=== PATIENT | male | born 1990 | race Caucasian/White ===

== ENCOUNTER 2022-05-22 17:21 | Inpatient (IN) | payer OTHER ==
[2022-05-22 17:56] VITALS: BMI 26.8
[2022-05-22] MEDS ORDERED: guaiFENesin 200 MG/10 ML 10 ML UNIT-DOSE CUPS PO PRN (19:38)
[2022-05-22] MEDS ORDERED: IBUPROFEN 600 MG TABLET (FP) PO PRN (19:38)
[2022-05-22] MEDS ORDERED: hydrOXYzine PAMOATE 25 MG CAPSULE (FP) PO PRN (19:38)
[2022-05-22] MEDS ORDERED: ONDANSETRON *ODT* 4 MG TABLET SL PRN (19:38)
[2022-05-22] MEDS ORDERED: POLYETHYLENE GLYCOL (HEALTHYLAX) 3350 17 GM PACKET PO PRN (19:38)
[2022-05-22] MEDS ORDERED: DICYCLOMINE HCL 10 MG CAPSULE PO PRN (19:38)
[2022-05-22] MEDS ORDERED: BENZOCAINE/MENTHOL (CHLORASEPTIC ) LOZENGE MM PRN (19:38)
[2022-05-22] MEDS ORDERED: MAGNESIUM HYDROX 2400MG/30ML ORAL SUSPENSION 30 ML CUP PO PRN (19:38)
[2022-05-22] MEDS ORDERED: METHOCARBAMOL 500 MG TABLET PO PRN (19:38)
[2022-05-22] MEDS ORDERED: IBUPROFEN 400 MG TABLET (FP) PO PRN (19:38)
[2022-05-22] MEDS ORDERED: P-EPHED 60MG/TRIPROLIDI 2.5MG TABLET PO PRN (19:38)
[2022-05-22] MEDS ORDERED: MAG HYDROX/AL HYDROX/SIMETH 30 ML UNIT-DOSE CUP PO PRN (19:38)
[2022-05-22] MEDS ORDERED: ACETAMINOPHEN 325 MG TABLET (FP) PO PRN ×2 (19:38)
[2022-05-22] MEDS ORDERED: BISMUTH SUBSALICYLATE 524 MG/30 ML PO PRN (19:38)
[2022-05-23] MEDS: THIAMINE HCL 100 MG TABLET (FP) PO SCH ×2 (00:03→22:15)
[2022-05-23] MEDS: MELATONIN 5 MG TABLETS PO PRN ×2 (00:04→22:16)
[2022-05-23] MEDS: diazePAM 5 MG TABLET PO PRN (00:04)
[2022-05-23] MEDS: diazePAM 5 MG TABLET PO SCH ×5 (00:07→22:15)
[2022-05-23] MEDS: PRENATAL VITAMINS W/ FOLIC ACID TABLET (FP) PO SCH (10:51)
[2022-05-23] MEDS: HYDROCORTISONE 1% TOPICAL CREAM 30 GM TUBE TP SCH (15:14)
[2022-05-23] MEDS: LOPERAMIDE HCL 2 MG CAPSULE PO PRN (16:51)
[2022-05-23] MEDS: FAMOTIDINE 20 MG TABLET PO SCH (22:15)
[2022-05-24] MEDS: diazePAM 5 MG TABLET PO SCH ×3 (05:50→22:30)
[2022-05-24] MEDS: FAMOTIDINE 20 MG TABLET PO SCH ×2 (10:48→22:30)
[2022-05-24] MEDS: PRENATAL VITAMINS W/ FOLIC ACID TABLET (FP) PO SCH (10:48)
[2022-05-24] MEDS: HYDROCORTISONE 1% TOPICAL CREAM 30 GM TUBE TP SCH (10:48)
[2022-05-24] MEDS ORDERED: diphenhydrAMINE HCL 50 MG CAPSULE PO PRN (13:38)
[2022-05-24] MEDS: LOPERAMIDE HCL 2 MG CAPSULE PO PRN (13:41)
[2022-05-24] MEDS: THIAMINE HCL 100 MG TABLET (FP) PO SCH (22:30)
[2022-05-24] MEDS: MELATONIN 5 MG TABLETS PO PRN (22:32)
[2022-05-25] MEDS: diazePAM 5 MG TABLET PO SCH ×2 (05:22→17:16)
[2022-05-25] MEDS: PRENATAL VITAMINS W/ FOLIC ACID TABLET (FP) PO SCH (10:17)
[2022-05-25] MEDS: FAMOTIDINE 20 MG TABLET PO SCH ×2 (10:17→22:08)
[2022-05-25] MEDS: HYDROCORTISONE 1% TOPICAL CREAM 30 GM TUBE TP SCH (10:17)
[2022-05-25] MEDS: diazePAM 5 MG TABLET PO PRN (10:18)
[2022-05-25] MEDS: LOPERAMIDE HCL 2 MG CAPSULE PO PRN (17:35)
[2022-05-25 17:39] VITALS: RESP 17
[2022-05-25] MEDS: THIAMINE HCL 100 MG TABLET (FP) PO SCH (22:08)
[2022-05-26] MEDS ORDERED: diazePAM 5 MG TABLET PO ONE (06:00)
[2022-05-26 09:18] VITALS: BP 115/69; PULSE 83; TEMP 97
[2022-05-26] MEDS: FAMOTIDINE 20 MG TABLET PO SCH (09:49)
[2022-05-26] MEDS: PRENATAL VITAMINS W/ FOLIC ACID TABLET (FP) PO SCH (09:49)
[2022-05-26] MEDS: HYDROCORTISONE 1% TOPICAL CREAM 30 GM TUBE TP SCH (09:50)
== END 2022-05-26 11:40 | disposition other institution (70) | DRG 775 ==
LOC: YASAS 17:21 → Y6N 22:27
PROVIDERS: ADMIT Allergy & Immunology; ATTEND Surgery
PROC: HZ2ZZZZ Detoxification Services for Substance Abuse Treatment (ICD-10-PCS; principal; 2022-05-22)
DX: F10.230 Alcohol dependence with withdrawal, uncomplicated (principal); K21.9 Gastro-esophageal reflux disease without esophagitis; Z59.00 Homelessness unspecified; Z91.013 Allergy to seafood
CPT/HCPCS: 36415; 86780; 87811; C9803-CS; U0003; U0005

== ENCOUNTER 2022-06-21 17:30 | Inpatient (IN) | payer OTHER ==
[2022-06-21 18:33] VITALS: BMI 26.6
[2022-06-21] MEDS ORDERED: ONDANSETRON *ODT* 4 MG TABLET SL PRN (20:07)
[2022-06-21] MEDS ORDERED: P-EPHED 60MG/TRIPROLIDI 2.5MG TABLET PO PRN (20:07)
[2022-06-21] MEDS ORDERED: MAG HYDROX/AL HYDROX/SIMETH 30 ML UNIT-DOSE CUP PO PRN (20:07)
[2022-06-21] MEDS ORDERED: DICYCLOMINE HCL 10 MG CAPSULE PO PRN (20:07)
[2022-06-21] MEDS ORDERED: BENZONATATE 200 MG CAPSULE PO PRN (20:07)
[2022-06-21] MEDS ORDERED: IBUPROFEN 400 MG TABLET (FP) PO PRN (20:07)
[2022-06-21] MEDS ORDERED: POLYETHYLENE GLYCOL (HEALTHYLAX) 3350 17 GM PACKET PO PRN (20:07)
[2022-06-21] MEDS ORDERED: BENZOCAINE/MENTHOL (CHLORASEPTIC ) LOZENGE MM PRN (20:07)
[2022-06-21] MEDS ORDERED: guaiFENesin 600 MG TABLET.ER (FP) PO PRN (20:07)
[2022-06-21] MEDS ORDERED: MAGNESIUM HYDROX 2400MG/30ML ORAL SUSPENSION 30 ML CUP PO PRN (20:07)
[2022-06-21] MEDS ORDERED: LOPERAMIDE HCL 2 MG CAPSULE PO PRN (20:07)
[2022-06-21] MEDS ORDERED: chlordiazePOXIDE HCL 25 MG CAPSULE PO PRN (20:10)
[2022-06-22] MEDS: THIAMINE HCL 100 MG TABLET (FP) PO SCH ×2 (00:44→22:18)
[2022-06-22] MEDS: chlordiazePOXIDE HCL 25 MG CAPSULE PO SCH ×5 (00:44→22:19)
[2022-06-22] MEDS: MELATONIN 5 MG TABLETS PO PRN ×2 (00:51→22:18)
[2022-06-22] MEDS: PRENATAL VITAMINS W/ FOLIC ACID TABLET (FP) PO SCH (10:47)
[2022-06-22] MEDS: FAMOTIDINE 20 MG TABLET PO SCH ×2 (10:48→22:19)
[2022-06-22 11:44] LABS: CALCIUM 8.9 mg/dL (8.5-10.1); HEMATOCRIT 38.3 % (35.4-49); HEMOGLOBIN 12.9 GM/dL (11.7-16.9); MCH 30.2 pg (25.7-33.7); MCHC 33.6 g/dl (32.0-35.9); MEAN CELL VOLUME 89.7 fl (80-96); MEAN PLT VOLUME 10.2 fl (7.5-11.1); PLATELET COUNT 155 10^3/uL (134-434); RBC 4.27 M/mm3 (4.00-5.60); RDW 13.3 % (11.9-15.9)
[2022-06-22 11:45] LABS: ALBUMIN 3.5 g/dl (3.4-5.0); BLOOD UREA NITROGEN 7.5 mg/dL (7-18)
[2022-06-22 11:48] LABS: CREATININE 0.7 mg/dL (0.55-1.3)
[2022-06-22 11:49] LABS: BILIRUBIN,TOTAL 0.3 mg/dL (0.2-1); TOT PROT 7.2 g/dl (6.4-8.2)
[2022-06-22] MEDS: ACETAMINOPHEN 325 MG TABLET (FP) PO PRN (18:07)
[2022-06-23] MEDS: chlordiazePOXIDE HCL 25 MG CAPSULE PO SCH ×4 (05:51→22:11)
[2022-06-23] MEDS: PRENATAL VITAMINS W/ FOLIC ACID TABLET (FP) PO SCH (10:27)
[2022-06-23] MEDS: FAMOTIDINE 20 MG TABLET PO SCH ×2 (10:27→22:11)
[2022-06-23] MEDS: ACETAMINOPHEN 325 MG TABLET (FP) PO PRN (11:03)
[2022-06-23] MEDS: THIAMINE HCL 100 MG TABLET (FP) PO SCH (22:11)
[2022-06-23] MEDS: MELATONIN 5 MG TABLETS PO PRN (22:12)
[2022-06-24] MEDS ORDERED: chlordiazePOXIDE HCL 10 MG CAPSULE PO PRN
[2022-06-24] MEDS: chlordiazePOXIDE HCL 10 MG CAPSULE PO SCH ×4 (05:43→22:05)
[2022-06-24] MEDS: FAMOTIDINE 20 MG TABLET PO SCH ×2 (10:13→22:05)
[2022-06-24] MEDS: PRENATAL VITAMINS W/ FOLIC ACID TABLET (FP) PO SCH (10:13)
[2022-06-24] MEDS: BISMUTH SUBSALICYLATE 524 MG/30 ML PO PRN (21:28)
[2022-06-24] MEDS: THIAMINE HCL 100 MG TABLET (FP) PO SCH (22:05)
[2022-06-24] MEDS: MELATONIN 5 MG TABLETS PO PRN (22:05)
[2022-06-25] MEDS: chlordiazePOXIDE HCL 10 MG CAPSULE PO SCH ×2 (05:46→17:51)
[2022-06-25] MEDS: BISMUTH SUBSALICYLATE 524 MG/30 ML PO PRN ×4 (05:47→22:31)
[2022-06-25] MEDS: FAMOTIDINE 20 MG TABLET PO SCH ×2 (10:09→22:27)
[2022-06-25] MEDS: PRENATAL VITAMINS W/ FOLIC ACID TABLET (FP) PO SCH (10:09)
[2022-06-25] MEDS: IBUPROFEN 600 MG TABLET (FP) PO PRN (10:11)
[2022-06-25] MEDS: ACETAMINOPHEN 325 MG TABLET (FP) PO PRN (17:50)
[2022-06-25] MEDS: MELATONIN 5 MG TABLETS PO PRN (22:27)
[2022-06-25] MEDS: THIAMINE HCL 100 MG TABLET (FP) PO SCH (22:27)
[2022-06-26] MEDS ORDERED: chlordiazePOXIDE HCL 10 MG CAPSULE PO ONE (05:00)
[2022-06-26 09:48] VITALS: BP 104/70; PULSE 73; RESP 18; TEMP 97.3
[2022-06-26] MEDS: FAMOTIDINE 20 MG TABLET PO SCH (10:13)
[2022-06-26] MEDS: IBUPROFEN 600 MG TABLET (FP) PO PRN (10:13)
[2022-06-26] MEDS: PRENATAL VITAMINS W/ FOLIC ACID TABLET (FP) PO SCH (10:13)
[2022-06-26] MEDS: BISMUTH SUBSALICYLATE 524 MG/30 ML PO PRN (12:01)
== END 2022-06-26 12:55 | disposition home or self-care (01) | DRG 775 ==
LOC: YASAS 17:30 → Y3N 23:47
PROVIDERS: ADMIT Allergy & Immunology; ATTEND Allergy & Immunology
PROC: HZ2ZZZZ Detoxification Services for Substance Abuse Treatment (ICD-10-PCS; principal; 2022-06-21)
DX: F10.230 Alcohol dependence with withdrawal, uncomplicated (principal)
CPT/HCPCS: 36415; 80053; 85027; 86780; C9803-CS; U0003; U0005

== ENCOUNTER 2022-09-29 14:50 | Inpatient (IN) | payer OTHER ==
[2022-09-29 16:41] VITALS: BMI 26.9
[2022-09-29] MEDS ORDERED: NALOXONE HCL 0.4 MG/ML VIAL IM PRN (19:48)
[2022-09-29] MEDS ORDERED: MAG HYDROX/AL HYDROX/SIMETH 30 ML UNIT-DOSE CUP PO PRN (19:48)
[2022-09-29] MEDS ORDERED: guaiFENesin 600 MG TABLET.ER (FP) PO PRN (19:48)
[2022-09-29] MEDS ORDERED: BENZOCAINE/MENTHOL (CHLORASEPTIC ) LOZENGE MM PRN (19:48)
[2022-09-29] MEDS ORDERED: LORazepam 1 MG TABLET PO PRN (19:48)
[2022-09-29] MEDS ORDERED: NALOXONE HCL (KLOXXADO) 8 MG SPRAY NS PRN (19:48)
[2022-09-29] MEDS ORDERED: BISMUTH SUBSALICYLATE 524 MG/30 ML PO PRN (19:48)
[2022-09-29] MEDS ORDERED: DICYCLOMINE HCL 10 MG CAPSULE PO PRN (19:48)
[2022-09-29] MEDS ORDERED: LOPERAMIDE HCL 2 MG CAPSULE PO PRN (19:48)
[2022-09-29] MEDS ORDERED: IBUPROFEN 400 MG TABLET (FP) PO PRN (19:48)
[2022-09-29] MEDS ORDERED: POLYETHYLENE GLYCOL (HEALTHYLAX) 3350 17 GM PACKET PO PRN (19:48)
[2022-09-29] MEDS ORDERED: BENZONATATE 200 MG CAPSULE PO PRN (19:48)
[2022-09-29] MEDS ORDERED: ONDANSETRON *ODT* 4 MG TABLET SL PRN (19:48)
[2022-09-29] MEDS ORDERED: MAGNESIUM HYDROX 2400MG/30ML ORAL SUSPENSION 30 ML CUP PO PRN (19:48)
[2022-09-29] MEDS: MELATONIN 5 MG TABLETS PO SCH (22:21)
[2022-09-29] MEDS: LORazepam 2 MG TABLET PO SCH (22:22)
[2022-09-29] MEDS: THIAMINE HCL 100 MG TABLET (FP) PO SCH (22:22)
[2022-09-30] MEDS: LORazepam 2 MG TABLET PO SCH ×4 (05:12→22:09)
[2022-09-30] MEDS: FAMOTIDINE 20 MG TABLET PO SCH ×2 (10:27→22:07)
[2022-09-30] MEDS: PRENATAL VITAMINS W/ FOLIC ACID TABLET (FP) PO SCH (10:27)
[2022-09-30 13:10] LABS: POTASSIUM 3.8 mmol/L (3.5-5.1)
[2022-09-30 13:12] LABS: HEMATOCRIT 40.1 % (35.4-49); HEMOGLOBIN 13.4 GM/dL (11.7-16.9); MCH 30.1 pg (25.7-33.7); MCHC 33.5 g/dl (32.0-35.9); MEAN CELL VOLUME 89.8 fl (80-96); MEAN PLT VOLUME 9.8 fl (7.5-11.1); PLATELET COUNT 189 10^3/uL (134-434); RBC 4.47 M/mm3 (4.00-5.60); RDW 14.4 % (11.9-15.9); WHITE BLOOD COUNT 5.3 K/mm3 (4.0-10.0)
[2022-09-30] MEDS: CLINDAMYCIN PHOSPHATE 1% TOPICAL SOLUTION 30 ML BOTTLE TP SCH (13:12)
[2022-09-30 13:14] LABS: ALBUMIN 3.6 g/dl (3.4-5.0); CALCIUM 9.4 mg/dL (8.5-10.1)
[2022-09-30 13:15] LABS: BLOOD UREA NITROGEN 8.6 mg/dL (7-18)
[2022-09-30 13:17] LABS: CREATININE 0.8 mg/dL (0.55-1.3)
[2022-09-30 13:19] LABS: BILIRUBIN,TOTAL 0.4 mg/dL (0.2-1); TOT PROT 7.4 g/dl (6.4-8.2)
[2022-09-30] MEDS: MELATONIN 5 MG TABLETS PO SCH (22:06)
[2022-09-30] MEDS: THIAMINE HCL 100 MG TABLET (FP) PO SCH (22:06)
[2022-09-30] MEDS: diphenhydrAMINE HCL 25 MG CAPSULE (FP) PO PRN (22:08)
[2022-09-30] MEDS: ACETAMINOPHEN 325 MG TABLET (FP) PO PRN (22:12)
[2022-10-01] MEDS: LORazepam 1 MG TABLET PO SCH ×4 (05:51→22:15)
[2022-10-01] MEDS: FAMOTIDINE 20 MG TABLET PO SCH ×2 (09:59→22:15)
[2022-10-01] MEDS: PRENATAL VITAMINS W/ FOLIC ACID TABLET (FP) PO SCH (09:59)
[2022-10-01] MEDS: IBUPROFEN 600 MG TABLET (FP) PO PRN ×2 (10:00→18:57)
[2022-10-01] MEDS: CLINDAMYCIN PHOSPHATE 1% TOPICAL SOLUTION 30 ML BOTTLE TP SCH (10:01)
[2022-10-01] MEDS: THIAMINE HCL 100 MG TABLET (FP) PO SCH (22:15)
[2022-10-01] MEDS: diphenhydrAMINE HCL 25 MG CAPSULE (FP) PO PRN (22:15)
[2022-10-01] MEDS: ACETAMINOPHEN 325 MG TABLET (FP) PO PRN (22:21)
[2022-10-01] MEDS: MELATONIN 5 MG TABLETS PO SCH (23:27)
[2022-10-02] MEDS ORDERED: LORazepam 0.5 MG TABLET PO PRN
[2022-10-02] MEDS: LORazepam 0.5 MG TABLET PO SCH ×4 (06:00→22:17)
[2022-10-02] MEDS ORDERED: COLLOIDAL OATMEAL 1 BAR EACH TP PRN (09:03)
[2022-10-02] MEDS: FAMOTIDINE 20 MG TABLET PO SCH ×2 (10:10→22:17)
[2022-10-02] MEDS: PRENATAL VITAMINS W/ FOLIC ACID TABLET (FP) PO SCH (10:10)
[2022-10-02] MEDS: SELENIUM SULFIDE 2.5% LOTION 4 OZ. TP SCH (10:11)
[2022-10-02] MEDS: CLINDAMYCIN PHOSPHATE 1% TOPICAL SOLUTION 30 ML BOTTLE TP SCH (10:15)
[2022-10-02] MEDS: IBUPROFEN 600 MG TABLET (FP) PO PRN (17:35)
[2022-10-02] MEDS: THIAMINE HCL 100 MG TABLET (FP) PO SCH (22:17)
[2022-10-02] MEDS: MELATONIN 5 MG TABLETS PO SCH (22:19)
[2022-10-02] MEDS: diphenhydrAMINE HCL 25 MG CAPSULE (FP) PO PRN (22:22)
[2022-10-03] MEDS ORDERED: LORazepam 0.5 MG TABLET PO ONE (05:00)
[2022-10-03 05:35] VITALS: RESP 17
[2022-10-03 09:02] VITALS: BP 117/76; PULSE 68; TEMP 96.9
[2022-10-03] MEDS: PRENATAL VITAMINS W/ FOLIC ACID TABLET (FP) PO SCH (10:34)
[2022-10-03] MEDS: CLINDAMYCIN PHOSPHATE 1% TOPICAL SOLUTION 30 ML BOTTLE TP SCH (10:34)
[2022-10-03] MEDS: FAMOTIDINE 20 MG TABLET PO SCH (10:34)
[2022-10-03] MEDS: SELENIUM SULFIDE 2.5% LOTION 4 OZ. TP SCH (10:35)
== END 2022-10-03 09:55 | disposition other institution (70) | DRG 775 ==
LOC: YASAS 14:50 → Y6N 20:42
PROVIDERS: ADMIT Allergy & Immunology; ATTEND Surgery
PROC: HZ2ZZZZ Detoxification Services for Substance Abuse Treatment (ICD-10-PCS; principal; 2022-09-29)
DX: F10.230 Alcohol dependence with withdrawal, uncomplicated (principal); F12.20 Cannabis dependence, uncomplicated; F10.24 Alcohol dependence with alcohol-induced mood disorder; F10.282 Alcohol dependence with alcohol-induced sleep disorder; J45.909 Unspecified asthma, uncomplicated; K21.9 Gastro-esophageal reflux disease without esophagitis; L40.9 Psoriasis, unspecified; Z86.2 Personal history of diseases of the blood and blood-forming organs and certain disorders involving the immune mechanism
CPT/HCPCS: 36415; 80053; 82962; 83036; 85027; 86780; 87635; 87811; 93005; 93010

== ENCOUNTER 2023-03-06 14:05 | Inpatient (IN) | payer OTHER ==
[2023-03-06 14:36] VITALS: BMI 27.4
[2023-03-06] MEDS ORDERED: ALBUTEROL SO4 HFA INHALER IH PRN (17:52)
[2023-03-06] MEDS ORDERED: chlordiazePOXIDE HCL 25 MG CAPSULE PO PRN (17:52)
[2023-03-06] MEDS ORDERED: chlordiazePOXIDE HCL 25 MG CAPSULE PO ONE (17:52)
[2023-03-06] MEDS ORDERED: ACETAMINOPHEN 325 MG TABLET (FP) PO PRN (17:53)
[2023-03-06] MEDS ORDERED: P-EPHED 60MG/TRIPROLIDI 2.5MG TABLET PO PRN (17:53)
[2023-03-06] MEDS ORDERED: BISMUTH SUBSALICYLATE 524 MG/30 ML PO PRN (17:53)
[2023-03-06] MEDS ORDERED: DICYCLOMINE HCL 10 MG CAPSULE PO PRN (17:53)
[2023-03-06] MEDS ORDERED: POLYETHYLENE GLYCOL (HEALTHYLAX) 3350 17 GM PACKET PO PRN (17:53)
[2023-03-06] MEDS ORDERED: BENZONATATE 200 MG CAPSULE PO PRN (17:53)
[2023-03-06] MEDS ORDERED: ONDANSETRON *ODT* 4 MG TABLET SL PRN (17:53)
[2023-03-06] MEDS ORDERED: MAG HYDROX/AL HYDROX/SIMETH 30 ML UNIT-DOSE CUP PO PRN (17:53)
[2023-03-06] MEDS ORDERED: LOPERAMIDE HCL 2 MG CAPSULE PO PRN (17:53)
[2023-03-06] MEDS ORDERED: BENZOCAINE/MENTHOL (CHLORASEPTIC ) LOZENGE MM PRN (17:53)
[2023-03-06] MEDS ORDERED: MAGNESIUM HYDROX 2400MG/30ML ORAL SUSPENSION 30 ML CUP PO PRN (17:53)
[2023-03-06] MEDS ORDERED: guaiFENesin 600 MG TABLET.ER (FP) PO PRN (17:53)
[2023-03-06] MEDS ORDERED: chlordiazePOXIDE HCL 25 MG CAPSULE ONE (20:17)
[2023-03-06] MEDS: MELATONIN 5 MG TABLETS PO SCH (22:39)
[2023-03-06] MEDS: chlordiazePOXIDE HCL 25 MG CAPSULE PO SCH (22:40)
[2023-03-06] MEDS: FAMOTIDINE 20 MG TABLET PO SCH (22:40)
[2023-03-06] MEDS: THIAMINE HCL 100 MG TABLET (FP) PO SCH (22:40)
[2023-03-07] MEDS: chlordiazePOXIDE HCL 25 MG CAPSULE PO SCH ×4 (05:45→22:08)
[2023-03-07] MEDS: PRENATAL VITAMINS W/ FOLIC ACID TABLET (FP) PO SCH (10:30)
[2023-03-07] MEDS: FAMOTIDINE 20 MG TABLET PO SCH ×2 (10:30→22:08)
[2023-03-07 11:22] LABS: HEMATOCRIT 39.9 % (35.4-49); HEMOGLOBIN 13.2 GM/dL (11.7-16.9); MCH 30.4 pg (25.7-33.7); MCHC 33.1 g/dl (32.0-35.9); MEAN CELL VOLUME 91.8 fl (80-96); MEAN PLT VOLUME 9.6 fl (7.5-11.1); PLATELET COUNT 179 10^3/uL (134-434); RBC 4.34 M/mm3 (4.00-5.60); RDW 14.6 % (11.9-15.9)
[2023-03-07 11:39] LABS: CHLORIDE 109 mmol/L (98-107); POTASSIUM 3.9 mmol/L (3.5-5.1); SODIUM 141 mmol/L (136-145)
[2023-03-07 11:43] LABS: CALCIUM 8.7 mg/dL (8.5-10.1)
[2023-03-07 11:44] LABS: ALBUMIN 3.4 g/dl (3.4-5.0); ANION GAP 5 mmol/L (4-13); BLOOD UREA NITROGEN 8.5 mg/dL (7-18); CO2 27 mmol/L (21-32); GLUCOSE,RANDOM 104 mg/dL (74-106)
[2023-03-07 11:47] LABS: CREATININE 0.7 mg/dL (0.55-1.3); SGOT/AST 45 U/L (15-37); SGPT/ALT 124 U/L (13-61)
[2023-03-07 11:49] LABS: BILIRUBIN,TOTAL 0.5 mg/dL (0.2-1); TOT PROT 7.1 g/dl (6.4-8.2)
[2023-03-07 11:50] LABS: ALK PHOS 90 U/L (45-117)
[2023-03-07] MEDS: LORATADINE 10 MG TABLET PO SCH (13:28)
[2023-03-07] MEDS: IBUPROFEN 400 MG TABLET (FP) PO PRN (17:39)
[2023-03-07] MEDS: TOLNAFTATE 1% CREAM 15 GM TUBE TP SCH (22:06)
[2023-03-07] MEDS: THIAMINE HCL 100 MG TABLET (FP) PO SCH (22:08)
[2023-03-07] MEDS: MELATONIN 5 MG TABLETS PO SCH (22:08)
[2023-03-07] MEDS ORDERED: COLLOIDAL OATMEAL 1 BAR EACH TP PRN (23:25)
[2023-03-07] MEDS ORDERED: AMMONIUM LACTATE 12% LOTION 225 GM BOTTLE TP PRN (23:27)
[2023-03-08] MEDS: chlordiazePOXIDE HCL 25 MG CAPSULE PO SCH ×4 (06:00→22:22)
[2023-03-08] MEDS: IBUPROFEN 400 MG TABLET (FP) PO PRN (06:36)
[2023-03-08] MEDS: TOLNAFTATE 1% CREAM 15 GM TUBE TP SCH ×2 (10:08→22:24)
[2023-03-08] MEDS: PRENATAL VITAMINS W/ FOLIC ACID TABLET (FP) PO SCH (10:09)
[2023-03-08] MEDS: LORATADINE 10 MG TABLET PO SCH (10:09)
[2023-03-08] MEDS: FAMOTIDINE 20 MG TABLET PO SCH ×2 (10:09→22:23)
[2023-03-08] MEDS: SELENIUM SULFIDE 2.25% 180 ML SHAMPOO TP SCH (11:00)
[2023-03-08] MEDS: HYDROCORTISONE 0.5% TOPICAL CREAM 30 GM TUBE TP SCH ×2 (13:21→22:24)
[2023-03-08] MEDS: IBUPROFEN 600 MG TABLET (FP) PO PRN (13:25)
[2023-03-08] MEDS ORDERED: diphenhydrAMINE HCL 25 MG CAPSULE (FP) PO PRN (15:29)
[2023-03-08] MEDS: MELATONIN 5 MG TABLETS PO SCH (22:23)
[2023-03-08] MEDS: THIAMINE HCL 100 MG TABLET (FP) PO SCH (22:23)
[2023-03-09] MEDS ORDERED: chlordiazePOXIDE HCL 10 MG CAPSULE PO PRN
[2023-03-09] MEDS: chlordiazePOXIDE HCL 10 MG CAPSULE PO SCH ×4 (05:50→22:41)
[2023-03-09] MEDS: FAMOTIDINE 20 MG TABLET PO SCH ×2 (10:33→22:40)
[2023-03-09] MEDS: LORATADINE 10 MG TABLET PO SCH (10:33)
[2023-03-09] MEDS: HYDROCORTISONE 0.5% TOPICAL CREAM 30 GM TUBE TP SCH ×2 (10:33→22:40)
[2023-03-09] MEDS: TOLNAFTATE 1% CREAM 15 GM TUBE TP SCH ×2 (10:33→22:40)
[2023-03-09] MEDS: PRENATAL VITAMINS W/ FOLIC ACID TABLET (FP) PO SCH (10:33)
[2023-03-09] MEDS: SELENIUM SULFIDE 2.25% 180 ML SHAMPOO TP SCH (10:33)
[2023-03-09] MEDS: IBUPROFEN 400 MG TABLET (FP) PO PRN ×2 (17:26→23:38)
[2023-03-09] MEDS: THIAMINE HCL 100 MG TABLET (FP) PO SCH (22:40)
[2023-03-09] MEDS: MELATONIN 5 MG TABLETS PO SCH (22:40)
[2023-03-10] MEDS: chlordiazePOXIDE HCL 10 MG CAPSULE PO SCH ×3 (05:50→17:35)
[2023-03-10] MEDS: FAMOTIDINE 20 MG TABLET PO SCH ×2 (10:35→21:19)
[2023-03-10] MEDS: LORATADINE 10 MG TABLET PO SCH (10:35)
[2023-03-10] MEDS: TOLNAFTATE 1% CREAM 15 GM TUBE TP SCH ×2 (10:35→21:19)
[2023-03-10] MEDS: PRENATAL VITAMINS W/ FOLIC ACID TABLET (FP) PO SCH (10:35)
[2023-03-10] MEDS: HYDROCORTISONE 0.5% TOPICAL CREAM 30 GM TUBE TP SCH ×2 (10:35→21:18)
[2023-03-10] MEDS: SELENIUM SULFIDE 2.25% 180 ML SHAMPOO TP SCH (10:36)
[2023-03-10] MEDS: IBUPROFEN 400 MG TABLET (FP) PO PRN (15:41)
[2023-03-10] MEDS: IBUPROFEN 600 MG TABLET (FP) PO PRN (21:19)
[2023-03-10] MEDS: THIAMINE HCL 100 MG TABLET (FP) PO SCH (21:19)
[2023-03-10] MEDS: MELATONIN 5 MG TABLETS PO SCH (21:19)
[2023-03-11] MEDS ORDERED: chlordiazePOXIDE HCL 10 MG CAPSULE PO ONE (05:00)
[2023-03-11 06:33] VITALS: BP 100/60; PULSE 76
[2023-03-11 08:58] VITALS: RESP 16; TEMP 97.7
[2023-03-11] MEDS: LORATADINE 10 MG TABLET PO SCH (10:13)
[2023-03-11] MEDS: PRENATAL VITAMINS W/ FOLIC ACID TABLET (FP) PO SCH (10:13)
[2023-03-11] MEDS: FAMOTIDINE 20 MG TABLET PO SCH (10:13)
[2023-03-11] MEDS: SELENIUM SULFIDE 2.25% 180 ML SHAMPOO TP SCH (10:15)
[2023-03-11] MEDS: HYDROCORTISONE 0.5% TOPICAL CREAM 30 GM TUBE TP SCH (10:15)
[2023-03-11] MEDS: TOLNAFTATE 1% CREAM 15 GM TUBE TP SCH (10:15)
== END 2023-03-11 11:19 | disposition home or self-care (01) | DRG 775 ==
LOC: YASAS 14:05 → Y3N 19:34
PROVIDERS: ADMIT Allergy & Immunology; ATTEND Surgery
PROC: HZ2ZZZZ Detoxification Services for Substance Abuse Treatment (ICD-10-PCS; principal; 2023-03-06)
DX: F10.230 Alcohol dependence with withdrawal, uncomplicated (principal); F12.10 Cannabis abuse, uncomplicated; L85.3 Xerosis cutis; R74.01 Elevation of levels of liver transaminase levels; R73.03 Prediabetes; R26.89 Other abnormalities of gait and mobility
CPT/HCPCS: 36415; 80053; 80307; 85027; 86780; 87635

== ENCOUNTER 2023-09-16 15:53 | Inpatient (IN) | payer OTHER ==
[2023-09-16 16:37] VITALS: BMI 27.6
[2023-09-16] MEDS ORDERED: NICOTINE POLACRILEX 2 MG LOZENGE BC PRN (16:55)
[2023-09-16] MEDS ORDERED: ONDANSETRON *ODT* 4 MG TABLET SL PRN (16:55)
[2023-09-16] MEDS ORDERED: BENZONATATE 200 MG CAPSULE PO PRN (16:55)
[2023-09-16] MEDS ORDERED: LOPERAMIDE HCL 2 MG CAPSULE PO PRN (16:55)
[2023-09-16] MEDS ORDERED: BENZOCAINE/MENTHOL (CHLORASEPTIC ) LOZENGE MM PRN (16:55)
[2023-09-16] MEDS ORDERED: POLYETHYLENE GLYCOL (HEALTHYLAX) 3350 17 GM PACKET PO PRN (16:55)
[2023-09-16] MEDS ORDERED: MAG HYDROX/AL HYDROX/SIMETH 30 ML UNIT-DOSE CUP PO PRN (16:55)
[2023-09-16] MEDS ORDERED: NICOTINE POLACRILEX 2 MG GUM BUC PRN (16:55)
[2023-09-16] MEDS ORDERED: MAGNESIUM HYDROX 2400MG/30ML ORAL SUSPENSION 30 ML CUP PO PRN (16:55)
[2023-09-16] MEDS ORDERED: DICYCLOMINE HCL 10 MG CAPSULE PO PRN (16:55)
[2023-09-16] MEDS: diazePAM 5 MG TABLET PO PRN (18:38)
[2023-09-16] MEDS: METHOCARBAMOL 500 MG TABLET PO PRN (18:51)
[2023-09-16] MEDS: diazePAM 5 MG TABLET PO SCH (22:25)
[2023-09-16] MEDS: THIAMINE 100 MG TABLET PO SCH (22:25)
[2023-09-16] MEDS: HYDROCORTISONE 0.5% TOPICAL CREAM 30 GM TUBE TP PRN (22:26)
[2023-09-16] MEDS: MELATONIN 5 MG TABLETS PO SCH (22:26)
[2023-09-17] MEDS: ACETAMINOPHEN 325 MG TABLET (FP) PO PRN (01:07)
[2023-09-17] MEDS: guaiFENesin 600 MG TABLET.ER (FP) PO PRN (05:52)
[2023-09-17] MEDS: IBUPROFEN 600 MG TABLET (FP) PO PRN (05:53)
[2023-09-17] MEDS ORDERED: ALBUTEROL SO4 HFA INHALER IH PRN (07:46)
[2023-09-17] MEDS ORDERED: FLUOCINONIDE 0.05% CREAM (15 GM TUBE) TP SCH (10:00)
[2023-09-17] MEDS: BISMUTH SUBSALICYLATE 524 MG/30 ML PO PRN (10:10)
[2023-09-17] MEDS: FAMOTIDINE 20 MG TABLET PO SCH (10:13)
[2023-09-17] MEDS: PRENATAL VITAMINS W/ FOLIC ACID TABLET (FP) PO SCH (10:13)
[2023-09-17] MEDS: TOLNAFTATE 1% CREAM 15 GM TUBE TP SCH (10:15)
[2023-09-17] MEDS: diphenhydrAMINE HCL 25 MG CAPSULE (FP) PO PRN (10:24)
[2023-09-17 12:05] LABS: CHLORIDE 108 mmol/L (98-107); SODIUM 139 mmol/L (136-145)
[2023-09-17 12:16] LABS: CALCIUM 8.9 mg/dL (8.5-10.1)
[2023-09-17 12:17] LABS: ALBUMIN 3.6 g/dl (3.4-5.0); ANION GAP 5 mmol/L (4-13); CO2 26 mmol/L (21-32); GLUCOSE,RANDOM 107 mg/dL (74-106)
[2023-09-17 12:19] LABS: CREATININE 0.8 mg/dL (0.55-1.3)
[2023-09-17 12:20] LABS: HEMATOCRIT 38.4 % (35.4-49); HEMOGLOBIN 12.9 GM/dL (11.7-16.9); MCH 30.2 pg (25.7-33.7); MCHC 33.7 g/dl (32.0-35.9); MEAN CELL VOLUME 89.8 fl (80-96); MEAN PLT VOLUME 9.6 fl (7.5-11.1); PLATELET COUNT 157 10^3/uL (134-434); RBC 4.27 M/mm3 (4.00-5.60); RDW 13.2 % (11.9-15.9); SGOT/AST 34 U/L (15-37); SGPT/ALT 75 U/L (13-61); WHITE BLOOD COUNT 5.3 K/mm3 (4.0-10.0)
[2023-09-17 12:21] LABS: BILIRUBIN,TOTAL 0.5 mg/dL (0.2-1); TOT PROT 7.3 g/dl (6.4-8.2)
[2023-09-17 12:22] LABS: ALK PHOS 105 U/L (45-117)
[2023-09-17] MEDS: SELENIUM SULFIDE 2.25% 180 ML SHAMPOO TP SCH (13:23)
[2023-09-18] MEDS: diazePAM 5 MG TABLET PO SCH (05:35)
[2023-09-18] MEDS: IBUPROFEN 400 MG TABLET (FP) PO PRN (05:37)
[2023-09-18] MEDS: NALTREXONE HCL 50 MG TABLET PO SCH (11:51)
[2023-09-19] MEDS: diazePAM 5 MG TABLET PO SCH (06:09)
[2023-09-20] MEDS: diazePAM 5 MG TABLET PO ONE (06:54)
[2023-09-20 12:33] VITALS: BP 112/71; PULSE 79; RESP 17; TEMP 98.6
== END 2023-09-20 13:47 | disposition other institution (70) | DRG 775 ==
LOC: YASAS 15:53 → Y6N 17:40
PROVIDERS: ADMIT Allergy & Immunology; ATTEND Surgery
PROC: HZ2ZZZZ Detoxification Services for Substance Abuse Treatment (ICD-10-PCS; principal; 2023-09-16)
DX: F10.230 Alcohol dependence with withdrawal, uncomplicated (principal); J45.909 Unspecified asthma, uncomplicated; K21.9 Gastro-esophageal reflux disease without esophagitis; L30.9 Dermatitis, unspecified; B35.3 Tinea pedis; Z56.0 Unemployment, unspecified; Z59.01 Sheltered homelessness
CPT/HCPCS: 36415; 80053; 80307; 85027; 86780; 87811

== ENCOUNTER 2023-09-20 14:02 | Inpatient (IN) | payer OTHER ==
[2023-09-20] MEDS ORDERED: BENZOCAINE/MENTHOL (CHLORASEPTIC ) LOZENGE MM PRN (16:09)
[2023-09-20] MEDS ORDERED: MAGNESIUM HYDROX 2400MG/30ML ORAL SUSPENSION 30 ML CUP PO PRN (16:09)
[2023-09-20] MEDS ORDERED: BENZONATATE 200 MG CAPSULE PO PRN (16:09)
[2023-09-20] MEDS ORDERED: NALOXONE (NARCAN) HCL 4 MG/0.1 ML SPRAY NS PRN (16:09)
[2023-09-20] MEDS ORDERED: NICOTINE POLACRILEX 4 MG LOZENGE BC PRN (16:09)
[2023-09-20] MEDS ORDERED: NICOTINE POLACRILEX 4 MG GUM BUC PRN (16:09)
[2023-09-20] MEDS ORDERED: POLYETHYLENE GLYCOL (HEALTHYLAX) 3350 17 GM PACKET PO PRN (16:09)
[2023-09-20] MEDS ORDERED: NALOXONE HCL 0.4 MG/ML VIAL IVPUSH PRN (16:09)
[2023-09-20] MEDS ORDERED: guaiFENesin 600 MG TABLET.ER (FP) PO PRN (16:09)
[2023-09-20] MEDS ORDERED: LOPERAMIDE HCL 2 MG CAPSULE PO PRN (16:09)
[2023-09-20] MEDS ORDERED: ALBUTEROL SO4 HFA INHALER IH PRN (17:08)
[2023-09-20] MEDS: THIAMINE 100 MG TABLET PO SCH (21:17)
[2023-09-20] MEDS: MELATONIN 5 MG TABLETS PO SCH (21:17)
[2023-09-20] MEDS: FAMOTIDINE 20 MG TABLET PO SCH (21:18)
[2023-09-20] MEDS: ACETAMINOPHEN 325 MG TABLET (FP) PO PRN (21:19)
[2023-09-20] MEDS: diphenhydrAMINE HCL 25 MG CAPSULE (FP) PO PRN (21:19)
[2023-09-21] MEDS: IBUPROFEN 400 MG TABLET (FP) PO PRN (06:56)
[2023-09-21] MEDS: PRENATAL VITAMINS W/ FOLIC ACID TABLET (FP) PO SCH (10:15)
[2023-09-22] MEDS: IBUPROFEN 600 MG TABLET (FP) PO PRN (10:00)
[2023-09-23] MEDS: SELENIUM SULFIDE 2.25% 180 ML SHAMPOO TP SCH (14:08)
[2023-09-23] MEDS: LACTULOSE 20 GM/30 ML UDC (FOR ORAL USE ONLY) PO SCH (14:09)
[2023-09-23] MEDS: NALTREXONE HCL 50 MG TABLET PO ONE ×2 (14:09→14:18)
[2023-09-23] MEDS: hydrOXYzine PAMOATE 25 MG CAPSULE (FP) PO PRN (19:54)
[2023-09-23] MEDS: LORATADINE 10 MG TABLET PO PRN (23:14)
[2023-09-23] MEDS: MAG HYDROX/AL HYDROX/SIMETH 30 ML UNIT-DOSE CUP PO PRN (23:16)
[2023-09-24] MEDS: NALTREXONE HCL 50 MG TABLET PO SCH (09:57)
[2023-09-24] MEDS: METHOCARBAMOL 500 MG TABLET PO PRN (17:39)
[2023-09-24] MEDS: diphenhydrAMINE HCL 25 MG CAPSULE (FP) PO PRN (21:24)
[2023-09-30] MEDS: diphenhydrAMINE HCL 50 MG CAPSULE PO PRN (10:56)
[2023-10-01] MEDS ORDERED: diphenhydrAMINE HCL 25 MG CAPSULE (FP) PO ONE (10:01)
[2023-10-01] MEDS ORDERED: DOCUSATE SODIUM 100 MG CAPSULE (FP) PO PRN (13:42)
[2023-10-01] MEDS ORDERED: BISACODYL 5 MG TABLET.DR (FP) PO PRN (13:43)
[2023-10-01] MEDS: HYDROCORTISONE 1% TOPICAL CREAM 30 GM TUBE TP PRN (14:17)
[2023-10-01] MEDS: BACLOFEN 10 MG TABLET (FP) PO SCH (14:17)
[2023-10-01] MEDS: diphenhydrAMINE HCL 50 MG CAPSULE PO PRN (21:17)
[2023-10-02] MEDS: NALTREXONE HCL 50 MG TABLET PO SCH (10:08)
[2023-10-03] MEDS ORDERED: diphenhydrAMINE HCL 25 MG CAPSULE (FP) PO ONE (07:00)
[2023-10-03 07:32] VITALS: BP 99/80; PULSE 80; RESP 18; TEMP 97
[2023-10-10] MEDS ORDERED: NALTREXONE MICROSPHERES (VIVITROL) 380 MG DISP.SYRIN IM ONE (12:00)
== END 2023-10-03 12:51 | disposition left against medical advice (07) | DRG 770 ==
LOC: YASAS 14:02 → Y3E 14:03
PROVIDERS: ADMIT Allergy & Immunology; ATTEND Psychiatry & Neurology Pain Medicine
PROC: HZ42ZZZ Group Counseling for Substance Abuse Treatment, Cognitive-Behavioral (ICD-10-PCS; principal; 2023-09-20)
DX: F10.20 Alcohol dependence, uncomplicated (principal); F10.280 Alcohol dependence with alcohol-induced anxiety disorder; F10.24 Alcohol dependence with alcohol-induced mood disorder; F32.A Depression, unspecified; B35.3 Tinea pedis; E72.20 Disorder of urea cycle metabolism, unspecified; J45.909 Unspecified asthma, uncomplicated; L30.9 Dermatitis, unspecified; L40.9 Psoriasis, unspecified; R73.03 Prediabetes; F91.8 Other conduct disorders; Z91.199 Patient's noncompliance with other medical treatment and regimen due to unspecified reason; Z59.00 Homelessness unspecified
CPT/HCPCS: 36415; 71046-TC-FY; 82140; 86803; J0475

== ENCOUNTER 2024-08-30 19:55 | Inpatient (IN) | payer OTHER ==
[2024-08-30 20:17] VITALS: BMI 30.1
[2024-08-30] MEDS ORDERED: NALOXONE (NARCAN) HCL 4 MG/0.1 ML SPRAY NS PRN (20:37)
[2024-08-30] MEDS ORDERED: ALBUTEROL SO4 HFA INHALER IH PRN (20:37)
[2024-08-30] MEDS ORDERED: LOPERAMIDE HCL 2 MG CAPSULE PO PRN (20:37)
[2024-08-30] MEDS ORDERED: BENZOCAINE/MENTHOL (CHLORASEPTIC ) LOZENGE MM PRN (20:37)
[2024-08-30] MEDS ORDERED: BENZONATATE 200 MG CAPSULE PO PRN (20:37)
[2024-08-30] MEDS ORDERED: guaiFENesin 600 MG TABLET.ER (FP) PO PRN (20:37)
[2024-08-30] MEDS ORDERED: chlordiazePOXIDE HCL 25 MG CAPSULE PO PRN (20:37)
[2024-08-30] MEDS ORDERED: MAG HYDROX/AL HYDROX/SIMETH 30 ML UNIT-DOSE CUP PO PRN (20:37)
[2024-08-30] MEDS ORDERED: DICYCLOMINE HCL 10 MG CAPSULE PO PRN (20:37)
[2024-08-30] MEDS ORDERED: ACETAMINOPHEN 325 MG TABLET (FP) PO PRN (20:37)
[2024-08-30] MEDS ORDERED: POLYETHYLENE GLYCOL (HEALTHYLAX) 3350 17 GM PACKET PO PRN (20:37)
[2024-08-30] MEDS ORDERED: ONDANSETRON *ODT* 4 MG TABLET SL PRN (20:37)
[2024-08-30] MEDS ORDERED: MAGNESIUM HYDROX 2400MG/30ML ORAL SUSPENSION 30 ML CUP PO PRN (20:37)
[2024-08-30] MEDS: THIAMINE 100 MG TABLET PO SCH (22:15)
[2024-08-30] MEDS: MELATONIN 5 MG TABLETS PO SCH (22:15)
[2024-08-30] MEDS: METHOCARBAMOL 500 MG TABLET PO PRN (22:16)
[2024-08-30] MEDS: chlordiazePOXIDE HCL 25 MG CAPSULE PO SCH (22:16)
[2024-08-31] MEDS: PRENATAL VITAMINS W/ FOLIC ACID TABLET (FP) PO SCH (10:21)
[2024-08-31] MEDS: hydrOXYzine PAMOATE 25 MG CAPSULE (FP) PO PRN (10:22)
[2024-08-31] MEDS: IBUPROFEN 600 MG TABLET (FP) PO PRN (10:24)
[2024-08-31 11:01] LABS: HEMATOCRIT 42.9 % (40.1-51.0); HEMOGLOBIN 13.9 g/dL (13.7-17.5); MCHC 32.4 g/dl (32.3-36.5); MEAN CELL VOLUME 91.3 fl (79.0-92.2); PLATELET COUNT 206 x10^3/uL (163-337); RDW 13.3 % (12.0-15.6)
[2024-08-31 11:06] LABS: CHLORIDE 108 mmol/L (98-107); POTASSIUM 4.7 mmol/L (3.5-5.1); SODIUM 142 mmol/L (136-145)
[2024-08-31 11:10] LABS: ANION GAP 5 mmol/L (4-13); CO2 28 mmol/L (21-32); GLUCOSE,RANDOM 113 mg/dL (74-106)
[2024-08-31 11:11] LABS: ALBUMIN 3.5 g/dl (3.4-5.0); BLOOD UREA NITROGEN 10.6 mg/dL (7-18)
[2024-08-31 11:13] LABS: CREATININE 0.8 mg/dL (0.55-1.3)
[2024-08-31 11:14] LABS: SGOT/AST 39 U/L (15-37); SGPT/ALT 116 U/L (13-61)
[2024-08-31 11:15] LABS: BILIRUBIN,TOTAL 0.3 mg/dL (0.2-1); TOT PROT 7.3 g/dl (6.4-8.2)
[2024-08-31 11:16] LABS: ALK PHOS 94 U/L (45-117)
[2024-08-31] MEDS: FAMOTIDINE 20 MG TABLET PO SCH (15:00)
[2024-08-31] MEDS: LORATADINE 10 MG TABLET PO SCH (15:00)
[2024-08-31] MEDS: diphenhydrAMINE HCL 25 MG CAPSULE (FP) PO PRN (22:22)
[2024-09-01] MEDS: chlordiazePOXIDE HCL 25 MG CAPSULE PO SCH (06:10)
[2024-09-01] MEDS: HYDROCORTISONE 1% TOPICAL OINT 30 GM TUBE TP PRN (07:48)
[2024-09-01] MEDS: diphenhydrAMINE HCL 50 MG CAPSULE PO SCH (11:44)
[2024-09-02] MEDS ORDERED: chlordiazePOXIDE HCL 10 MG CAPSULE PO PRN
[2024-09-02] MEDS: chlordiazePOXIDE HCL 10 MG CAPSULE PO SCH (05:59)
[2024-09-02] MEDS ORDERED: diphenhydrAMINE HCL 25 MG CAPSULE (FP) PO ONE (09:59)
[2024-09-02] MEDS: IBUPROFEN 400 MG TABLET (FP) PO PRN (17:21)
[2024-09-02] MEDS: METHOCARBAMOL 500 MG TABLET PO PRN (22:20)
[2024-09-03] MEDS: chlordiazePOXIDE HCL 10 MG CAPSULE PO SCH (05:50)
[2024-09-03] MEDS: BISMUTH SUBSALICYLATE 524 MG/30 ML PO PRN (09:19)
[2024-09-04] MEDS: chlordiazePOXIDE HCL 10 MG CAPSULE PO ONE (05:00)
[2024-09-04 09:21] VITALS: BP 99/64; PULSE 78; RESP 18; TEMP 97.5
[2024-09-04] MEDS ORDERED: diphenhydrAMINE HCL 25 MG CAPSULE (FP) PO ONE (09:44)
== END 2024-09-04 10:03 | disposition home or self-care (01) | DRG 775 ==
LOC: YASAS 19:55 → Y3N 20:59
PROVIDERS: ADMIT Family Medicine; ATTEND Family Medicine Addiction Medicine
PROC: HZ2ZZZZ Detoxification Services for Substance Abuse Treatment (ICD-10-PCS; principal; 2024-08-30)
DX: F10.230 Alcohol dependence with withdrawal, uncomplicated (principal); F10.282 Alcohol dependence with alcohol-induced sleep disorder; J45.909 Unspecified asthma, uncomplicated; K21.9 Gastro-esophageal reflux disease without esophagitis; L30.9 Dermatitis, unspecified; R74.01 Elevation of levels of liver transaminase levels; R73.03 Prediabetes; R45.89 Other symptoms and signs involving emotional state; Z59.00 Homelessness unspecified; Z91.199 Patient's noncompliance with other medical treatment and regimen due to unspecified reason
CPT/HCPCS: 36415; 80053; 80305; 80307; 82962; 85027; 86780; 93005; 93010